=== PATIENT | female | born 1975 | race Caucasian/White ===

== ENCOUNTER 2019-09-25 15:46 | Inpatient (IN) ==
[2019-09-25] MEDS ORDERED: Ziprasidone 20 MG in Water for inj. (sterile) 1 ML IM ONE (16:07)
[2019-09-25 16:39] LABS: Basophils # 0.1 K/mcL (0.0-0.2); Basophils % 0.4 %; Eosinophils # 0.1 K/mcL (0.0-0.6); Eosinophils % 0.4 %; Hematocrit 43.4 % (35.3-44.9); Hemoglobin 14.3 g/dL (11.5-15.4); Immature Granulocytes % 0.4 % (0-4); Lymphocytes # 3.4 K/mcL (0.6-4.6); Lymphocytes % 23.4 %; Mean Corpuscular HGB Conc 32.9 g/dL (31.6-35.5); Mean Corpuscular Hemoglobin 28.9 pg (28.0-33.3); Mean Corpuscular Volume 87.9 fL (83.0-100.0); Mean Platelet Volume 9.9 fL (9.4-12.4); Monocytes # 0.9 K/mcL (0.0-1.3); Monocytes % 6.4 %; Neutrophils # 9.9 K/mcL (1.6-8.9); Platelet Count 411 K/mcL (140-400); Red Blood Count 4.94 M/mcL (3.82-4.97); White Blood Count 14.4 K/mcL (4.3-11.1)
[2019-09-25 16:42] LABS: Acetaminophen < 10 mcg/mL (10-20); BUN/Creatinine Ratio 19 (6-26); Blood Urea Nitrogen 17 mg/dL (6-20); Calcium 9.7 mg/dL (8.6-10.3); Carbon Dioxide 23 mEq/L (23-29); Chloride 104 mEq/L (98-107); Ethanol < 10 mg/dL (Less than 10); Glucose 238 mg/dL (70-105); Osmolality,Calculated 293 (280-300); Potassium 3.6 mEq/L (3.5-5.1); Salicylate < 2.5 mg/dL (15.0-30.0); Sodium 137 mEq/L (136-145); eGFR For African Americans > 60 (> 60); eGFR For Non-African Americans > 60 (> 60)
[2019-09-25 18:12] LABS: Bilirubin,Urine Small (Negative); Blood,Urine Small (Negative); Clarity,Urine Cloudy (Clear); Color,Urine Dark Yellow (Yellow); Glucose,Urine (UA) 250 mg/dL (Normal); Ketones,Urine 80 mg/dL (Negative); Leukocyte Esterase,Urine Small (Negative); Nitrite,Urine Negative (Negative); Protein,Urine 100 mg/dL (Neg-Trace); Specific Gravity,Urine > 1.030 (1.010-1.025); Urobilinogen,Urine Normal (Normal)
[2019-09-25 18:15] LABS: Amphetamine Screen,Urine Negative ng/mL (Cutoff=1000); Barbiturate Screen,Urine Negative ng/mL (Cutoff=200); Benzodiazepines Screen,Urine Negative ng/mL (Cutoff=200); Cannabinoid Screen,Urine Negative ng/mL (Cutoff = 50); Cocaine Screen,Urine Negative ng/mL (Cutoff= 300); Opiate Screen,Urine Negative ng/mL (Cutoff=300); Phencyclidine Screen,Urine Negative ng/mL (Cutoff=25)
[2019-09-25 18:24] LABS: Calcium Oxalate Crystals,Urine Present; Squamous Epithelial Cell,Urine Moderate per lpf (None-Few)
[2019-09-25 18:25] LABS: WBC,Urine 0-3 per hpf (0-3)
[2019-09-25] MEDS ORDERED: haloperidoL 5 MG TABLET PO PRN (19:33)
[2019-09-25] MEDS ORDERED: MOM Conc 10 ML UD.LIQ PO PRN (19:33)
[2019-09-25] MEDS ORDERED: Acetaminophen 325 MG TABLET PO PRN (19:33)
[2019-09-25] MEDS ORDERED: *HR* LORazepam 2 MG/ML VIAL IM PRN (19:33)
[2019-09-25] MEDS ORDERED: Mag Hydrox/Al Hydrox/Simeth 30 ML UDC PO PRN (19:33)
[2019-09-25] MEDS ORDERED: *HR* LORazepam 1 MG TABLET PO PRN (19:33)
[2019-09-26] MEDS: *HR* Metformin 500 MG TABLET PO SCH ×3 (10:01→16:40)
[2019-09-26] MEDS: Haloperidol Lactate 5 MG/ML VIAL IM PRN (11:44)
[2019-09-26] MEDS: ARIPiprazole 5 MG TABLET PO SCH (11:49)
[2019-09-26] MEDS ORDERED: ARIPiprazole 5 MG TABLET PO STA (19:22)
[2019-09-26] MEDS ORDERED: *HR* LORazepam 1 MG TABLET PO ONE (19:23)
[2019-09-26] MEDS ORDERED: *HR* LORazepam 1 MG TABLET PO PRN (19:55)
[2019-09-26] MEDS ORDERED: *HR* LORazepam 2 MG/ML VIAL IM PRN (19:55)
[2019-09-27] MEDS: *HR* Metformin 500 MG TABLET PO SCH ×2 (12:00→16:50)
[2019-09-27] MEDS: ARIPiprazole 10 MG TABLET PO SCH ×2 (12:01→15:14)
[2019-09-27] MEDS: ARIPiprazole 5 MG TABLET PO SCH (12:01)
[2019-09-27] MEDS: Haloperidol Lactate 5 MG/ML VIAL IM PRN (22:19)
[2019-09-28] MEDS: ARIPiprazole 10 MG TABLET PO SCH (09:40)
[2019-09-28] MEDS: *HR* Metformin 500 MG TABLET PO SCH ×2 (09:40→17:36)
[2019-09-28] MEDS ORDERED: *HR* LORazepam 2 MG/ML VIAL IM PRN (14:24)
[2019-09-28] MEDS ORDERED: Haloperidol Lactate 5 MG/ML VIAL IM PRN (14:24)
[2019-09-28] MEDS: Dulaglutide [Trulicity] 0.75 MG SQ SCH (21:54)
[2019-09-29] MEDS: ARIPiprazole 10 MG TABLET PO SCH (08:30)
[2019-09-29] MEDS: *HR* Metformin 500 MG TABLET PO SCH ×3 (08:31→20:51)
[2019-09-29] MEDS: ARIPiprazole 5 MG TABLET PO SCH (08:31)
[2019-09-29] MEDS: QUEtiapine Fumarate 25 MG TABLET PO PRN (20:46)
[2019-09-30] MEDS: *HR* Metformin 500 MG TABLET PO SCH ×2 (07:55→16:54)
[2019-09-30 09:06] LABS: Basophils # 0.1 K/mcL (0.0-0.2); Basophils % 0.4 %; Eosinophils # 0.3 K/mcL (0.0-0.6); Eosinophils % 2.1 %; Hematocrit 43.5 % (35.3-44.9); Hemoglobin 14.3 g/dL (11.5-15.4); Immature Granulocytes % 0.5 % (0-4); Lymphocytes % 29.5 %; Mean Corpuscular HGB Conc 32.9 g/dL (31.6-35.5); Mean Corpuscular Hemoglobin 29.3 pg (28.0-33.3); Mean Corpuscular Volume 89.1 fL (83.0-100.0); Mean Platelet Volume 9.7 fL (9.4-12.4); Monocytes # 0.9 K/mcL (0.0-1.3); Monocytes % 6.7 %; Neutrophils # 8.3 K/mcL (1.6-8.9); Platelet Count 389 K/mcL (140-400); Red Blood Count 4.88 M/mcL (3.82-4.97); Red Cell Distribution Width 13.2 % (11.5-14.5); Segmented Neutrophils % 60.8 %; White Blood Count 13.6 K/mcL (4.3-11.1)
[2019-09-30 09:30] LABS: Alanine Aminotransferase 31 Units/L (7-52); Albumin 4.3 g/dL (3.5-5.7); Albumin/Globulin Ratio 1.7 (1.1-2.2); Alkaline Phosphatase 96 Units/L (34-104); Aspartate Amino Transferase 23 Units/L (13-39); BUN/Creatinine Ratio 12 (6-26); Bilirubin,Total 0.9 mg/dL (0.3-1.0); Blood Urea Nitrogen 10 mg/dL (6-20); Calcium 9.2 mg/dL (8.6-10.3); Carbon Dioxide 25 mEq/L (23-29); Chloride 104 mEq/L (98-107); Chol/HDL Ratio 2.9 (0-4.9); Cholesterol 117 mg/dL (< 200); Globulin 2.5 g/dL (2.4-3.5); Glucose 198 mg/dL (70-105); HDL Cholesterol 40 mg/dL (40-59); LDL Cholesterol,Calculated 49 mg/dL (0-99); Osmolality,Calculated 295 (280-300); Potassium 3.4 mEq/L (3.5-5.1); Sodium 140 mEq/L (136-145); Total Protein 6.8 g/dL (6.4-8.9); Triglycerides 139 mg/dL (< 150); eGFR For African Americans > 60 (> 60); eGFR For Non-African Americans > 60 (> 60)
[2019-09-30 09:42] LABS: Thyroid Stimulating Hormone 1.266 mcIU/mL (0.340-5.600)
[2019-09-30] MEDS: ARIPiprazole 10 MG TABLET PO SCH ×2 (09:42→09:46)
[2019-09-30] MEDS: ARIPiprazole 5 MG TABLET PO SCH (09:46)
[2019-09-30 13:20] LABS: Estimated Average Glucose 180 mg/dl
[2019-09-30] MEDS ORDERED: *HR* LORazepam 1 MG TABLET PO ONE (17:25)
[2019-09-30] MEDS: FISH OIL 1200 MG PO SCH (19:12)
[2019-09-30] MEDS: Dulaglutide [Trulicity] 0.75 MG SQ SCH (19:13)
[2019-09-30] MEDS: QUEtiapine Fumarate 25 MG TABLET PO PRN (22:38)
[2019-10-01] MEDS: hydrOXYzine pamoate 25 MG CAPSULE PO PRN ×2 (01:55→22:06)
[2019-10-01] MEDS: ARIPiprazole 10 MG TABLET PO SCH (07:06)
[2019-10-01] MEDS: *HR* Metformin 500 MG TABLET PO SCH ×2 (07:44→17:38)
[2019-10-01] MEDS: FISH OIL 1200 MG PO SCH (07:44)
[2019-10-01] MEDS ORDERED: *HR* LORazepam 1 MG TABLET PO PRN (11:14)
[2019-10-01] MEDS: QUEtiapine Fumarate 25 MG TABLET PO PRN (22:06)
[2019-10-02] MEDS ORDERED: ARIPiprazole 5 MG TABLET PO SCH (08:00)
[2019-10-02 08:13] VITALS: BP 151/103
[2019-10-02] MEDS: ARIPiprazole 10 MG TABLET PO SCH (08:59)
[2019-10-02] MEDS: FISH OIL 1200 MG PO SCH (09:01)
[2019-10-02] MEDS: *HR* Metformin 500 MG TABLET PO SCH (09:03)
== END 2019-10-02 11:25 | disposition home or self-care (01) | DRG 885 ==
LOC: EMEROOARM 15:46 → 1ANU 19:32
PROVIDERS: ADMIT Psychiatry & Neurology Psychiatry; ATTEND Psychiatry & Neurology Psychiatry

== ENCOUNTER 2020-02-28 17:50 | Inpatient (IN) ==
[2020-02-28] MEDS ORDERED: 0.9 % Sodium Chloride 1,000 ML IVC ONE (18:03)
[2020-02-28 18:50] LABS: Basophils % 0.2 %; Eosinophils # 0.2 K/mcL (0.0-0.6); Eosinophils % 1.6 %; Hematocrit 40.8 % (35.3-44.9); Hemoglobin 13.2 g/dL (11.5-15.4); Immature Granulocytes % 0.4 % (0-4); Lymphocytes # 3.3 K/mcL (0.6-4.6); Lymphocytes % 25.5 %; Mean Corpuscular HGB Conc 32.4 g/dL (31.6-35.5); Mean Corpuscular Volume 89.7 fL (83.0-100.0); Mean Platelet Volume 9.5 fL (9.4-12.4); Monocytes # 0.8 K/mcL (0.0-1.3); Monocytes % 6.2 %; Neutrophils # 8.5 K/mcL (1.6-8.9); Platelet Count 333 K/mcL (140-400); Red Blood Count 4.55 M/mcL (3.82-4.97); Red Cell Distribution Width 13.2 % (11.5-14.5); Segmented Neutrophils % 66.1 %; White Blood Count 12.8 K/mcL (4.3-11.1)
[2020-02-28 18:52] LABS: VBG HCO3 26 mEq/L (21-27); VBG PCO2 44 mmHg (41-51); VBG PH 7.38 pH Units (7.32-7.42); VBG PO2 64 mmHg (25-50)
[2020-02-28 19:08] LABS: Acetaminophen < 10 mcg/mL (10-20); Alanine Aminotransferase 43 Units/L (7-52); Albumin 4.1 g/dL (3.5-5.7); Albumin/Globulin Ratio 2.1 (1.1-2.2); Alkaline Phosphatase 80 Units/L (34-104); Aspartate Amino Transferase 16 Units/L (13-39); BUN/Creatinine Ratio 14 (6-26); Bilirubin,Direct 0.1 mg/dL (0.0-0.2); Bilirubin,Indirect 0.5 mg/dL (0.0-1.0); Bilirubin,Total 0.6 mg/dL (0.3-1.0); Blood Urea Nitrogen 9 mg/dL (6-20); Calcium 9.3 mg/dL (8.6-10.3); Carbon Dioxide 26 mEq/L (23-29); Chloride 104 mEq/L (98-107); Ethanol < 10 mg/dL (Less than 10); Glucose 229 mg/dL (70-105); Osmolality,Calculated 290 (280-300); Potassium 3.8 mEq/L (3.5-5.1); Salicylate < 2.5 mg/dL (15.0-30.0); Sodium 137 mEq/L (136-145); Total Protein 6.1 g/dL (6.4-8.9); eGFR For African Americans > 60 (> 60); eGFR For Non-African Americans > 60 (> 60)
[2020-02-28 20:56] LABS: Bilirubin,Urine Negative (Negative); Blood,Urine Trace (Negative); Clarity,Urine Clear (Clear); Color,Urine Light-Yellow (Yellow); Glucose,Urine (UA) 300 mg/dL (Normal); Ketones,Urine Negative (Negative); Leukocyte Esterase,Urine Negative (Negative); Mucus,Urine Few per lpf (None-Few); Nitrite,Urine Negative (Negative); PH,Urine 5.5 pH Units (5.0-8.0); Protein,Urine Negative (Neg-Trace); RBC,Urine 0-3 per hpf (0-3); Specific Gravity,Urine 1.013 (1.010-1.025); Squamous Epithelial Cell,Urine Few per hpf (None-Few); Urobilinogen,Urine Normal (Normal)
[2020-02-28 21:05] LABS: Amphetamine Screen,Urine Negative ng/mL (Cutoff=1000); Barbiturate Screen,Urine Negative ng/mL (Cutoff=200); Benzodiazepines Screen,Urine Negative ng/mL (Cutoff=200); Cannabinoid Screen,Urine Negative ng/mL (Cutoff = 50); Cocaine Screen,Urine Negative ng/mL (Cutoff= 300); Opiate Screen,Urine Negative ng/mL (Cutoff=300); Phencyclidine Screen,Urine Negative ng/mL (Cutoff=25)
[2020-02-29 00:38] LABS: Adenovirus Not Detected (Not Detect); Coronavirus 229E Not Detected (Not Detect); Coronavirus HKU1 Not Detected (Not Detect); Coronavirus NL63 Not Detected (Not Detect); Coronavirus OC43 Not Detected (Not Detect)
[2020-02-29 00:39] LABS: Bordetella Pertussis Not Detected (Not Detect); Chlamydophila pneumoniae Not Detected (Not Detect); Human Metapneumovirus Not Detected (Not Detect); Human Rhinovirus/Enterovirus Not Detected (Not Detect); Influenza A Subtype 2009 H1 Not Detected (Not Detect); Influenza B Not Detected (Not Detect); Mycoplasma pneumoniae Not Detected (Not Detect); Parainfluenza Virus 1 Not Detected (Not Detect); Parainfluenza Virus 2 Not Detected (Not Detect); Parainfluenza Virus 3 Not Detected (Not Detect); Parainfluenza Virus 4 Not Detected (Not Detect); Respiratory Syncytial Virus Not Detected (Not Detect); SARS-CoV-2 Not Detected (Not Detect)
[2020-02-29] MEDS ORDERED: Acetaminophen 325 MG TABLET PO PRN (01:58)
[2020-02-29] MEDS ORDERED: *HR* LORazepam 1 MG TABLET PO PRN (01:58)
[2020-02-29] MEDS ORDERED: haloperidoL 5 MG TABLET PO PRN (01:58)
[2020-02-29] MEDS ORDERED: Mag Hydrox/Al Hydrox/Simeth 30 ML UDC PO PRN (01:58)
[2020-02-29] MEDS ORDERED: QUEtiapine Fumarate 25 MG TABLET PO PRN (01:58)
[2020-02-29] MEDS ORDERED: MOM Conc 10 ML UD.LIQ PO PRN (01:58)
[2020-02-29] MEDS ORDERED: *HR* LORazepam 2 MG/ML VIAL IM PRN (01:58)
[2020-02-29] MEDS ORDERED: Haloperidol Lactate 5 MG/ML VIAL IM PRN (01:58)
[2020-02-29] MEDS ORDERED: OLANZapine 10 MG TAB.RAPDIS PO PRN (10:12)
[2020-02-29] MEDS: ARIPiprazole 10 MG TABLET PO SCH ×2 (10:22→12:44)
[2020-02-29] MEDS ORDERED: *HR* LORazepam 1 MG TABLET PO ONE (12:41)
[2020-02-29] MEDS: *HR* Metformin 500 MG TABLET PO SCH (17:13)
[2020-03-01] MEDS: ARIPiprazole 10 MG TABLET PO SCH (08:01)
[2020-03-01] MEDS: *HR* Metformin 500 MG TABLET PO SCH (08:02)
[2020-03-01] MEDS ORDERED: LOXAPINE SUCCINATE 50 MG PO PRN (12:45)
[2020-03-01] MEDS ORDERED: *HR* Metformin 500 MG TABLET PO SCH (17:00)
[2020-03-02] MEDS: ARIPiprazole 10 MG TABLET PO SCH ×2 (10:27→11:27)
[2020-03-02] MEDS: METFORMIN 500 MG PO SCH ×2 (10:29→12:27)
[2020-03-02] MEDS: hydrOXYzine pamoate 25 MG CAPSULE PO PRN (21:48)
[2020-03-03] MEDS: ARIPiprazole 10 MG TABLET PO SCH (09:44)
[2020-03-03] MEDS: METFORMIN 500 MG PO SCH (14:27)
[2020-03-04] MEDS: METFORMIN 500 MG PO SCH (10:21)
[2020-03-04] MEDS: ARIPiprazole 10 MG TABLET PO SCH (10:21)
[2020-03-05] MEDS ORDERED: ABILIFY 5 MG PO SCH ×2 (10:15→10:25)
[2020-03-05] MEDS: METFORMIN 500 MG PO SCH (10:35)
[2020-03-05] MEDS: ARIPiprazole 10 MG TABLET PO SCH (13:47)
[2020-03-05] MEDS: Dulaglutide [Trulicity] 0.75 MG SQ SCH (13:47)
[2020-03-05] MEDS: hydrOXYzine pamoate 25 MG CAPSULE PO PRN (18:27)
[2020-03-06] MEDS: ARIPiprazole 5 MG TABLET PO SCH ×2 (09:28→10:50)
[2020-03-06] MEDS: METFORMIN 500 MG PO SCH (09:30)
[2020-03-07] MEDS: ARIPiprazole 5 MG TABLET PO SCH (08:24)
[2020-03-07] MEDS: METFORMIN 500 MG PO SCH (08:26)
[2020-03-08] MEDS: ARIPiprazole 5 MG TABLET PO SCH (08:47)
[2020-03-08] MEDS: METFORMIN 500 MG PO SCH (08:48)
[2020-03-09] MEDS: ARIPiprazole 5 MG TABLET PO SCH (08:15)
[2020-03-09] MEDS: METFORMIN 500 MG PO SCH (08:17)
[2020-03-10] MEDS: ARIPiprazole 5 MG TABLET PO SCH (08:41)
[2020-03-10] MEDS: METFORMIN 500 MG PO SCH (08:43)
[2020-03-11] MEDS: ARIPiprazole 5 MG TABLET PO SCH (08:35)
[2020-03-11] MEDS: METFORMIN 500 MG PO SCH (08:37)
[2020-03-11 12:06] LABS: Basophils % 0.3 %; Eosinophils # 0.1 K/mcL (0.0-0.6); Eosinophils % 0.5 %; Hematocrit 49.2 % (35.3-44.9); Hemoglobin 16.3 g/dL (11.5-15.4); Immature Granulocytes % 0.4 % (0-4); Mean Corpuscular HGB Conc 33.1 g/dL (31.6-35.5); Mean Corpuscular Volume 90.4 fL (83.0-100.0); Mean Platelet Volume 10.2 fL (9.4-12.4); Monocytes # 0.8 K/mcL (0.0-1.3); Neutrophils # 9.7 K/mcL (1.6-8.9); Platelet Count 352 K/mcL (140-400); Red Blood Count 5.44 M/mcL (3.82-4.97); Red Cell Distribution Width 13.5 % (11.5-14.5); Segmented Neutrophils % 76.8 %; White Blood Count 12.6 K/mcL (4.3-11.1)
[2020-03-11 12:31] LABS: Magnesium 1.8 mg/dL (1.6-2.6); Phosphorous 4.1 mg/dL (2.7-4.5)
[2020-03-11 12:40] LABS: Alanine Aminotransferase 17 Units/L (7-52); Albumin 4.8 g/dL (3.5-5.7); Albumin/Globulin Ratio 1.8 (1.1-2.2); Alkaline Phosphatase 84 Units/L (34-104); Aspartate Amino Transferase 12 Units/L (13-39); BUN/Creatinine Ratio 21 (6-26); Bilirubin,Total 0.8 mg/dL (0.3-1.0); Blood Urea Nitrogen 19 mg/dL (6-20); Calcium 10.2 mg/dL (8.6-10.3); Carbon Dioxide 23 mEq/L (23-29); Chloride 107 mEq/L (98-107); Globulin 2.6 g/dL (2.4-3.5); Glucose 218 mg/dL (70-105); Osmolality,Calculated 309 (280-300); Potassium 4.1 mEq/L (3.5-5.1); Sodium 145 mEq/L (136-145); Thyroid Stimulating Hormone 0.542 mcIU/mL (0.340-5.600); Total Protein 7.4 g/dL (6.4-8.9); eGFR For African Americans > 60 (> 60); eGFR For Non-African Americans > 60 (> 60)
[2020-03-12] MEDS: ARIPiprazole 5 MG TABLET PO SCH (09:27)
[2020-03-12] MEDS: METFORMIN 500 MG PO SCH (09:29)
[2020-03-12] MEDS: Metoprolol XL (24 HR) Succ 25 MG TAB.ER.24H PO SCH (11:42)
[2020-03-12] MEDS: Dulaglutide [Trulicity] 0.75 MG SQ SCH (12:10)
[2020-03-12] MEDS ORDERED: Dextrose Gel 15 GM/37.5 ML TUBE PO PRN ×2 (16:10)
[2020-03-12] MEDS ORDERED: D5% in Water 1,000 ML IVC PRN (16:10)
[2020-03-12] MEDS ORDERED: *HR* Dextrose 50 % in Water (Vial) 50 ML VIAL IVP PRN (16:10)
[2020-03-12] MEDS: Insulin LISPRO 300 UNITS/3 ML VIAL SQ SCH (16:57)
[2020-03-13] MEDS: Insulin LISPRO 300 UNITS/3 ML VIAL SQ SCH ×3 (08:28→16:49)
[2020-03-13] MEDS: METFORMIN 500 MG PO SCH (09:02)
[2020-03-13] MEDS: Metoprolol XL (24 HR) Succ 25 MG TAB.ER.24H PO SCH (09:02)
[2020-03-13] MEDS: ARIPiprazole 5 MG TABLET PO SCH (10:10)
[2020-03-13 10:54] LABS: Hematocrit 48.4 % (35.3-44.9); Hemoglobin 15.6 g/dL (11.5-15.4); Mean Corpuscular HGB Conc 32.2 g/dL (31.6-35.5); Mean Corpuscular Hemoglobin 29.4 pg (28.0-33.3); Mean Corpuscular Volume 91.3 fL (83.0-100.0); Mean Platelet Volume 10.6 fL (9.4-12.4); Platelet Count 300 K/mcL (140-400); Red Cell Distribution Width 13.4 % (11.5-14.5); White Blood Count 11.5 K/mcL (4.3-11.1)
[2020-03-13] MEDS ORDERED: ABILIFY 5 MG PO ONE (15:30)
[2020-03-14] MEDS: Insulin LISPRO 300 UNITS/3 ML VIAL SQ SCH ×3 (08:53→16:46)
[2020-03-14] MEDS: ARIPiprazole 5 MG TABLET PO SCH (09:20)
[2020-03-14] MEDS: Metoprolol XL (24 HR) Succ 25 MG TAB.ER.24H PO SCH (09:23)
[2020-03-14] MEDS: METFORMIN 500 MG PO SCH ×2 (09:23→10:46)
[2020-03-14] MEDS: ARIPIPRAZOLE 5 MG PO SCH (10:49)
[2020-03-15] MEDS: Insulin LISPRO 300 UNITS/3 ML VIAL SQ SCH ×3 (08:32→16:40)
[2020-03-15] MEDS: Metoprolol XL (24 HR) Succ 25 MG TAB.ER.24H PO SCH (09:01)
[2020-03-15] MEDS ORDERED: ARIPiprazole 400 MG SUSER.SYR IM SCH (12:30)
[2020-03-15] MEDS: METFORMIN 500 MG PO SCH (14:36)
[2020-03-15] MEDS: ARIPIPRAZOLE 5 MG PO SCH (16:36)
[2020-03-16] MEDS: Insulin LISPRO 300 UNITS/3 ML VIAL SQ SCH ×3 (08:27→17:58)
[2020-03-16] MEDS: ARIPiprazole 5 MG TABLET PO SCH (08:32)
[2020-03-16] MEDS: METFORMIN 500 MG PO SCH (10:39)
[2020-03-16] MEDS: Metoprolol XL (24 HR) Succ 25 MG TAB.ER.24H PO SCH (10:39)
[2020-03-17] MEDS: Insulin LISPRO 300 UNITS/3 ML VIAL SQ SCH ×3 (08:36→16:37)
[2020-03-17] MEDS: ARIPiprazole 5 MG TABLET PO SCH (08:39)
[2020-03-17] MEDS: Metoprolol XL (24 HR) Succ 25 MG TAB.ER.24H PO SCH (08:40)
[2020-03-17] MEDS: METFORMIN 500 MG PO SCH (08:40)
[2020-03-17 11:05] LABS: Basophils % 0.3 %; Eosinophils # 0.1 K/mcL (0.0-0.6); Eosinophils % 0.6 %; Hematocrit 49.6 % (35.3-44.9); Hemoglobin 16.3 g/dL (11.5-15.4); Immature Granulocytes % 0.4 % (0-4); Lymphocytes # 1.9 K/mcL (0.6-4.6); Lymphocytes % 11.9 %; Mean Corpuscular HGB Conc 32.9 g/dL (31.6-35.5); Mean Corpuscular Hemoglobin 29.6 pg (28.0-33.3); Mean Platelet Volume 11.1 fL (9.4-12.4); Monocytes # 0.8 K/mcL (0.0-1.3); Monocytes % 5.1 %; Neutrophils # 12.8 K/mcL (1.6-8.9); Platelet Count 255 K/mcL (140-400); Red Blood Count 5.51 M/mcL (3.82-4.97); Segmented Neutrophils % 81.7 %; White Blood Count 15.6 K/mcL (4.3-11.1)
[2020-03-17 11:57] LABS: Alanine Aminotransferase 14 Units/L (7-52); Albumin 4.4 g/dL (3.5-5.7); Albumin/Globulin Ratio 1.8 (1.1-2.2); Alkaline Phosphatase 77 Units/L (34-104); Aspartate Amino Transferase 13 Units/L (13-39); BUN/Creatinine Ratio 23 (6-26); Bilirubin,Total 1.2 mg/dL (0.3-1.0); Blood Urea Nitrogen 21 mg/dL (6-20); Calcium 9.9 mg/dL (8.6-10.3); Carbon Dioxide 28 mEq/L (23-29); Chloride 105 mEq/L (98-107); Globulin 2.4 g/dL (2.4-3.5); Glucose 187 mg/dL (70-105); Osmolality,Calculated 304 (280-300); Potassium 3.6 mEq/L (3.5-5.1); Sodium 143 mEq/L (136-145); Total Protein 6.8 g/dL (6.4-8.9); eGFR For African Americans > 60 (> 60); eGFR For Non-African Americans > 60 (> 60)
[2020-03-17 12:13] LABS: Thyroid Stimulating Hormone 0.472 mcIU/mL (0.340-5.600)
[2020-03-18] MEDS: Insulin LISPRO 300 UNITS/3 ML VIAL SQ SCH ×3 (09:49→16:31)
[2020-03-18] MEDS: METFORMIN 500 MG PO SCH (09:50)
[2020-03-18] MEDS: Metoprolol XL (24 HR) Succ 25 MG TAB.ER.24H PO SCH (09:50)
[2020-03-18] MEDS: ARIPiprazole 5 MG TABLET PO SCH (12:15)
[2020-03-18] MEDS ORDERED: Melatonin 3 MG TABLET PO PRN (17:10)
[2020-03-19] MEDS: Insulin LISPRO 300 UNITS/3 ML VIAL SQ SCH ×3 (08:36→17:03)
[2020-03-19] MEDS: METFORMIN 500 MG PO SCH (08:40)
[2020-03-19] MEDS: ARIPiprazole 5 MG TABLET PO SCH ×2 (08:40→13:25)
[2020-03-19] MEDS: Metoprolol XL (24 HR) Succ 25 MG TAB.ER.24H PO SCH (08:54)
[2020-03-19 10:27] LABS: Basophils % 0.2 %; Eosinophils % 0.2 %; Hematocrit 52.2 % (35.3-44.9); Hemoglobin 17.3 g/dL (11.5-15.4); Immature Granulocytes % 0.5 % (0-4); Lymphocytes # 1.6 K/mcL (0.6-4.6); Lymphocytes % 12.4 %; Mean Corpuscular HGB Conc 33.1 g/dL (31.6-35.5); Mean Corpuscular Hemoglobin 29.5 pg (28.0-33.3); Mean Corpuscular Volume 89.1 fL (83.0-100.0); Mean Platelet Volume 11.5 fL (9.4-12.4); Monocytes # 0.8 K/mcL (0.0-1.3); Monocytes % 5.9 %; Neutrophils # 10.5 K/mcL (1.6-8.9); Platelet Count 285 K/mcL (140-400); Red Blood Count 5.86 M/mcL (3.82-4.97); Red Cell Distribution Width 13.1 % (11.5-14.5); Segmented Neutrophils % 80.8 %
[2020-03-19 10:54] LABS: Bilirubin,Urine Small (Negative); Blood,Urine Small (Negative); Clarity,Urine Ex.Turbid (Clear); Color,Urine Yellow (Yellow); Glucose,Urine (UA) 70 mg/dL (Normal); Ketones,Urine 60 mg/dL (Negative); Leukocyte Esterase,Urine Large (Negative); Nitrite,Urine Negative (Negative); Protein,Urine 70 mg/dL (Neg-Trace); Specific Gravity,Urine 1.026 (1.010-1.025)
[2020-03-19 10:58] LABS: Bacteria,Urine Many per hpf (None-Few); Squamous Epithelial Cell,Urine Many per hpf (None-Few)
[2020-03-19 10:59] LABS: Transitional Epi Cells,Urine Few per hpf (None-Few); WBC,Urine 30-50 per hpf (0-3)
[2020-03-19] MEDS: Dulaglutide [Trulicity] 0.75 MG SQ SCH (12:02)
[2020-03-19 12:38] LABS: Alanine Aminotransferase 12 Units/L (7-52); Albumin 4.8 g/dL (3.5-5.7); Albumin/Globulin Ratio 1.8 (1.1-2.2); Alkaline Phosphatase 81 Units/L (34-104); Aspartate Amino Transferase 13 Units/L (13-39); BUN/Creatinine Ratio 21 (6-26); Blood Urea Nitrogen 23 mg/dL (6-20); Calcium 10.3 mg/dL (8.6-10.3); Carbon Dioxide 23 mEq/L (23-29); Chloride 107 mEq/L (98-107); Globulin 2.6 g/dL (2.4-3.5); Glucose 266 mg/dL (70-105); Osmolality,Calculated 315 (280-300); Potassium 3.8 mEq/L (3.5-5.1); Sodium 146 mEq/L (136-145); Total Protein 7.4 g/dL (6.4-8.9); eGFR For African Americans > 60 (> 60); eGFR For Non-African Americans 55 (> 60)
[2020-03-19] MEDS ORDERED: Dulaglutide [Trulicity] 0.75 MG SQ SCH (15:30)
[2020-03-19] MEDS ORDERED: CefTRIAXone 1,000 MG VIAL IM ONE (16:48)
[2020-03-20] MEDS: Insulin LISPRO 300 UNITS/3 ML VIAL SQ SCH ×3 (08:22→16:37)
[2020-03-20] MEDS: ARIPiprazole 5 MG TABLET PO SCH (08:27)
[2020-03-20] MEDS: Metoprolol XL (24 HR) Succ 25 MG TAB.ER.24H PO SCH (08:29)
[2020-03-20] MEDS: METFORMIN 500 MG PO SCH (08:29)
[2020-03-20] MEDS ORDERED: CefTRIAXone 1,000 MG VIAL IM ONE (12:00)
[2020-03-21] MEDS: ARIPiprazole 5 MG TABLET PO SCH (08:48)
[2020-03-21] MEDS: Insulin LISPRO 300 UNITS/3 ML VIAL SQ SCH ×3 (08:50→17:08)
[2020-03-21] MEDS: Metoprolol XL (24 HR) Succ 25 MG TAB.ER.24H PO SCH (08:52)
[2020-03-21] MEDS: METFORMIN 500 MG PO SCH (08:52)
[2020-03-21] MEDS ORDERED: CefTRIAXone 1,000 MG VIAL IM ONE (12:00)
[2020-03-22] MEDS: Insulin LISPRO 300 UNITS/3 ML VIAL SQ SCH ×3 (09:45→16:38)
[2020-03-22] MEDS: ARIPiprazole 5 MG TABLET PO SCH (11:23)
[2020-03-22] MEDS: Metoprolol XL (24 HR) Succ 25 MG TAB.ER.24H PO SCH (11:31)
[2020-03-22] MEDS: METFORMIN 500 MG PO SCH (11:31)
[2020-03-23] MEDS: ARIPiprazole 5 MG TABLET PO SCH (11:08)
[2020-03-23] MEDS: Metoprolol XL (24 HR) Succ 25 MG TAB.ER.24H PO SCH (11:13)
[2020-03-23] MEDS: Insulin LISPRO 300 UNITS/3 ML VIAL SQ SCH ×3 (11:13→17:32)
[2020-03-23] MEDS: METFORMIN 500 MG PO SCH (11:13)
[2020-03-23 14:13] LABS: BUN/Creatinine Ratio 18 (6-26); Blood Urea Nitrogen 16 mg/dL (6-20); Calcium 9.5 mg/dL (8.6-10.3); Carbon Dioxide 24 mEq/L (23-29); Chloride 98 mEq/L (98-107); Glucose 167 mg/dL (70-105); Osmolality,Calculated 293 (280-300); Potassium 3.2 mEq/L (3.5-5.1); Sodium 139 mEq/L (136-145); eGFR For African Americans > 60 (> 60); eGFR For Non-African Americans > 60 (> 60)
[2020-03-24] MEDS: ARIPiprazole 5 MG TABLET PO SCH (10:44)
[2020-03-24] MEDS: Insulin LISPRO 300 UNITS/3 ML VIAL SQ SCH ×3 (10:47→16:36)
[2020-03-24] MEDS: METFORMIN 500 MG PO SCH (10:47)
[2020-03-24] MEDS: Metoprolol XL (24 HR) Succ 25 MG TAB.ER.24H PO SCH (10:48)
[2020-03-25] MEDS: Metoprolol XL (24 HR) Succ 25 MG TAB.ER.24H PO SCH (10:53)
[2020-03-25] MEDS: METFORMIN 500 MG PO SCH (10:53)
[2020-03-25] MEDS: Insulin LISPRO 300 UNITS/3 ML VIAL SQ SCH (10:54)
[2020-03-25] MEDS: ARIPiprazole 5 MG TABLET PO SCH (10:57)
[2020-03-25 14:26] VITALS: BP 138/84
[2020-03-25 15:14] LABS: Basophils % 0.3 %; Eosinophils # 0.1 K/mcL (0.0-0.6); Hematocrit 50.8 % (35.3-44.9); Hemoglobin 16.3 g/dL (11.5-15.4); Immature Granulocytes % 0.5 % (0-4); Lymphocytes % 17.2 %; Mean Corpuscular HGB Conc 32.1 g/dL (31.6-35.5); Mean Corpuscular Hemoglobin 28.3 pg (28.0-33.3); Mean Corpuscular Volume 88.3 fL (83.0-100.0); Mean Platelet Volume 11.4 fL (9.4-12.4); Monocytes # 0.8 K/mcL (0.0-1.3); Monocytes % 6.7 %; Neutrophils # 8.5 K/mcL (1.6-8.9); Platelet Count 298 K/mcL (140-400); Red Blood Count 5.75 M/mcL (3.82-4.97); Red Cell Distribution Width 13.5 % (11.5-14.5); Segmented Neutrophils % 74.3 %; White Blood Count 11.5 K/mcL (4.3-11.1)
[2020-03-25 15:39] LABS: BUN/Creatinine Ratio 17 (6-26); Blood Urea Nitrogen 16 mg/dL (6-20); Carbon Dioxide 27 mEq/L (23-29); Chloride 104 mEq/L (98-107); Glucose 157 mg/dL (70-105); Osmolality,Calculated 306 (280-300); Phosphorous 3.3 mg/dL (2.7-4.5); Potassium 3.5 mEq/L (3.5-5.1); Sodium 146 mEq/L (136-145); eGFR For African Americans > 60 (> 60); eGFR For Non-African Americans > 60 (> 60)
== END 2020-03-25 16:50 | disposition other institution (70) | DRG 918 ==
LOC: EMEROOARM 17:50 → SUATTDRO 02-29 01:50 → 1ANU 02-29 01:50
PROVIDERS: ADMIT Psychiatry & Neurology Psychiatry; ATTEND Psychiatry & Neurology Psychiatry

== ENCOUNTER 2020-03-25 14:17 | Inpatient (IN) ==
[2020-03-25] MEDS ORDERED: Naloxone 0.4 MG/ML INJ IVP PRN (15:08)
[2020-03-25] MEDS ORDERED: Acetaminophen 325 MG TABLET PO PRN (15:08)
[2020-03-25] MEDS ORDERED: Ondansetron 4 MG/2 ML VIAL IVP PRN (15:08)
[2020-03-25] MEDS ORDERED: haloperidoL 5 MG TABLET PO PRN (17:35)
[2020-03-25] MEDS ORDERED: QUEtiapine Fumarate 25 MG TABLET PO PRN (17:35)
[2020-03-25] MEDS ORDERED: hydrOXYzine pamoate 25 MG CAPSULE PO PRN (17:35)
[2020-03-25] MEDS ORDERED: *HR* LORazepam 2 MG/ML VIAL IM PRN (17:35)
[2020-03-25] MEDS ORDERED: Haloperidol Lactate 5 MG/ML VIAL IM PRN (17:35)
[2020-03-25] MEDS ORDERED: *HR* LORazepam 1 MG TABLET PO PRN (17:35)
[2020-03-25] MEDS ORDERED: D5% in Water 1,000 ML IVC PRN (17:58)
[2020-03-25] MEDS ORDERED: *HR* Dextrose 50 % in Water (Vial) 50 ML VIAL IVP PRN (17:58)
[2020-03-25] MEDS ORDERED: Dextrose Gel 15 GM/37.5 ML TUBE PO PRN ×2 (17:58)
[2020-03-25] MEDS: Ringers Solution, Lactated 1,000 ML IVC SCH (21:51)
[2020-03-26 06:07] LABS: Basophils % 0.3 %; Eosinophils # 0.3 K/mcL (0.0-0.6); Eosinophils % 3.2 %; Immature Granulocytes % 0.5 % (0-4); Lymphocytes # 3.8 K/mcL (0.6-4.6); Lymphocytes % 37.6 %; Mean Corpuscular HGB Conc 33.3 g/dL (31.6-35.5); Mean Corpuscular Hemoglobin 28.8 pg (28.0-33.3); Mean Corpuscular Volume 86.4 fL (83.0-100.0); Mean Platelet Volume 11.6 fL (9.4-12.4); Monocytes # 0.8 K/mcL (0.0-1.3); Monocytes % 7.4 %; Neutrophils # 5.2 K/mcL (1.6-8.9); Platelet Count 232 K/mcL (140-400); Red Blood Count 4.86 M/mcL (3.82-4.97); Red Cell Distribution Width 13.2 % (11.5-14.5); White Blood Count 10.2 K/mcL (4.3-11.1)
[2020-03-26] MEDS: *HR* Enoxaparin 40 MG/0.4 ML SYRINGE SQ SCH (06:09)
[2020-03-26 06:51] LABS: Alanine Aminotransferase 14 Units/L (7-52); Albumin 3.7 g/dL (3.5-5.7); Albumin/Globulin Ratio 1.9 (1.1-2.2); Alkaline Phosphatase 51 Units/L (34-104); Aspartate Amino Transferase 13 Units/L (13-39); BUN/Creatinine Ratio 16 (6-26); Bilirubin,Total 0.9 mg/dL (0.3-1.0); Blood Urea Nitrogen 14 mg/dL (6-20); Calcium 9.3 mg/dL (8.6-10.3); Carbon Dioxide 28 mEq/L (23-29); Chloride 97 mEq/L (98-107); Chol/HDL Ratio 5.3 (0-4.9); Cholesterol 132 mg/dL (< 200); Globulin 1.9 g/dL (2.4-3.5); Glucose 94 mg/dL (70-105); HDL Cholesterol 25 mg/dL (40-59); LDL Cholesterol,Calculated 89 mg/dL (< 100); Magnesium 1.7 mg/dL (1.6-2.6); Osmolality,Calculated 282 (280-300); Phosphorous 3.7 mg/dL (2.7-4.5); Potassium 2.8 mEq/L (3.5-5.1); Sodium 136 mEq/L (136-145); Total Protein 5.6 g/dL (6.4-8.9); Triglycerides 90 mg/dL (< 150); eGFR For African Americans > 60 (> 60); eGFR For Non-African Americans > 60 (> 60)
[2020-03-26] MEDS: ARIPiprazole 10 MG TABLET PO SCH (08:10)
[2020-03-26] MEDS: Metoprolol XL (24 HR) Succ 25 MG TAB.ER.24H PO SCH (08:10)
[2020-03-26 09:52] LABS: Estimated Average Glucose 200 mg/dl; Hemoglobin A1C 8.6 %
[2020-03-26] MEDS: Ringers Solution, Lactated 1,000 ML IVC SCH (12:33)
[2020-03-27] MEDS: *HR* Enoxaparin 40 MG/0.4 ML SYRINGE SQ SCH (03:09)
[2020-03-27] MEDS: ARIPiprazole 10 MG TABLET PO SCH (08:18)
[2020-03-27] MEDS ORDERED: ARIPiprazole 5 MG TABLET PO SCH (09:00)
[2020-03-27] MEDS: Metoprolol XL (24 HR) Succ 25 MG TAB.ER.24H PO SCH (09:55)
[2020-03-27 09:58] LABS: Hematocrit 39.7 % (35.3-44.9); Hemoglobin 13.2 g/dL (11.5-15.4); Mean Corpuscular HGB Conc 33.2 g/dL (31.6-35.5); Mean Corpuscular Hemoglobin 29.1 pg (28.0-33.3); Mean Corpuscular Volume 87.4 fL (83.0-100.0); Mean Platelet Volume 11.3 fL (9.4-12.4); Platelet Count 220 K/mcL (140-400); Red Blood Count 4.54 M/mcL (3.82-4.97); Red Cell Distribution Width 13.1 % (11.5-14.5); White Blood Count 9.2 K/mcL (4.3-11.1)
[2020-03-27 10:05] LABS: Potassium 3.7 mEq/L (3.5-5.1)
[2020-03-27 10:12] LABS: BUN/Creatinine Ratio 11 (6-26); Blood Urea Nitrogen 8 mg/dL (6-20); Calcium 8.5 mg/dL (8.6-10.3); Carbon Dioxide 23 mEq/L (23-29); Chloride 101 mEq/L (98-107); Glucose 109 mg/dL (70-105); Osmolality,Calculated 279 (280-300); Sodium 135 mEq/L (136-145); eGFR For African Americans > 60 (> 60); eGFR For Non-African Americans > 60 (> 60)
[2020-03-27] MEDS: ARIPiprazole 5 MG TABLET PO SCH (10:16)
[2020-03-27] MEDS: RisperiDONE-M 1 MG TAB.RAPDIS PO SCH ×2 (10:17→23:03)
[2020-03-27] MEDS ORDERED: Ringers Solution, Lactated 1,000 ML IVC SCH (13:45)
[2020-03-28 02:53] LABS: Hematocrit 36.3 % (35.3-44.9); Hemoglobin 12.3 g/dL (11.5-15.4); Mean Corpuscular HGB Conc 33.9 g/dL (31.6-35.5); Mean Corpuscular Volume 88.5 fL (83.0-100.0); Platelet Count 172 K/mcL (140-400); Red Cell Distribution Width 13.1 % (11.5-14.5)
[2020-03-28 03:15] LABS: BUN/Creatinine Ratio 7 (6-26); Blood Urea Nitrogen 5 mg/dL (6-20); Calcium 8.3 mg/dL (8.6-10.3); Carbon Dioxide 24 mEq/L (23-29); Chloride 104 mEq/L (98-107); Glucose 74 mg/dL (70-105); Osmolality,Calculated 284 (280-300); Potassium 3.2 mEq/L (3.5-5.1); Sodium 139 mEq/L (136-145); eGFR For African Americans > 60 (> 60); eGFR For Non-African Americans > 60 (> 60)
[2020-03-28] MEDS: *HR* Enoxaparin 40 MG/0.4 ML SYRINGE SQ SCH (05:57)
[2020-03-28] MEDS: Metoprolol XL (24 HR) Succ 25 MG TAB.ER.24H PO SCH (09:28)
[2020-03-28] MEDS: RisperiDONE-M 1 MG TAB.RAPDIS PO SCH ×2 (09:28→20:37)
[2020-03-28] MEDS: ARIPiprazole 5 MG TABLET PO SCH (09:37)
[2020-03-28] MEDS ORDERED: Ringers Solution, Lactated 500 ML IVC SCH (18:45)
[2020-03-29 01:29] LABS: Mean Corpuscular HGB Conc 33.3 g/dL (31.6-35.5); Mean Corpuscular Hemoglobin 29.5 pg (28.0-33.3); Mean Corpuscular Volume 88.6 fL (83.0-100.0); Mean Platelet Volume 11.2 fL (9.4-12.4); Platelet Count 179 K/mcL (140-400); Red Cell Distribution Width 13.2 % (11.5-14.5); White Blood Count 7.5 K/mcL (4.3-11.1)
[2020-03-29 01:40] LABS: BUN/Creatinine Ratio 7 (6-26); Blood Urea Nitrogen 4 mg/dL (6-20); Calcium 8.6 mg/dL (8.6-10.3); Carbon Dioxide 22 mEq/L (23-29); Chloride 104 mEq/L (98-107); Glucose 68 mg/dL (70-105); Osmolality,Calculated 281 (280-300); Potassium 3.3 mEq/L (3.5-5.1); Sodium 138 mEq/L (136-145); eGFR For African Americans > 60 (> 60); eGFR For Non-African Americans > 60 (> 60)
[2020-03-29] MEDS: *HR* Enoxaparin 40 MG/0.4 ML SYRINGE SQ SCH (07:17)
[2020-03-29] MEDS: Metoprolol XL (24 HR) Succ 25 MG TAB.ER.24H PO SCH (07:17)
[2020-03-29] MEDS ORDERED: Potassium Chloride 40 MEQ, Lidocaine 1% 2 ML in 0.9 % Sodium Chloride 500 ML IVPB ONE (07:31)
[2020-03-29] MEDS ORDERED: D5% in Water 500 ML IVC SCH (07:45)
[2020-03-29] MEDS: RisperiDONE-M 1 MG TAB.RAPDIS PO SCH ×2 (09:25→20:16)
[2020-03-29] MEDS: ARIPiprazole 5 MG TABLET PO SCH (09:52)
[2020-03-29 11:51] LABS: Magnesium 1.7 mg/dL (1.6-2.6); Phosphorous 2.8 mg/dL (2.7-4.5)
[2020-03-29] MEDS ORDERED: Lidocaine -MPF 1% 5 ML AMPUL INFILT ONE (12:01)
[2020-03-29] MEDS ORDERED: D10% in Water 500 ML IVC PRN (12:52)
[2020-03-29] MEDS: Insulin LISPRO 300 UNITS/3 ML VIAL SUBQ SCH ×2 (16:27→20:16)
[2020-03-29] MEDS ORDERED: Clinimix E 5%-15% SOLUTION 2,000 ML with MVI, adult with vitamin K 10 ML IVC SCH (17:00)
[2020-03-30] MEDS: Insulin LISPRO 300 UNITS/3 ML VIAL SUBQ SCH ×7 (00:14→23:52)
[2020-03-30 04:09] LABS: Hematocrit 40.9 % (35.3-44.9); Hemoglobin 13.4 g/dL (11.5-15.4); Mean Corpuscular HGB Conc 32.8 g/dL (31.6-35.5); Mean Corpuscular Hemoglobin 28.9 pg (28.0-33.3); Mean Corpuscular Volume 88.1 fL (83.0-100.0); Mean Platelet Volume 11.1 fL (9.4-12.4); Platelet Count 186 K/mcL (140-400); Red Blood Count 4.64 M/mcL (3.82-4.97); Red Cell Distribution Width 13.3 % (11.5-14.5); White Blood Count 8.7 K/mcL (4.3-11.1)
[2020-03-30 04:29] LABS: BUN/Creatinine Ratio 8 (6-26); Blood Urea Nitrogen 4 mg/dL (6-20); Calcium 8.6 mg/dL (8.6-10.3); Carbon Dioxide 25 mEq/L (23-29); Chloride 105 mEq/L (98-107); Glucose 130 mg/dL (70-105); Magnesium 1.7 mg/dL (1.6-2.6); Osmolality,Calculated 287 (280-300); Potassium 3.4 mEq/L (3.5-5.1); Sodium 139 mEq/L (136-145); eGFR For African Americans > 60 (> 60); eGFR For Non-African Americans > 60 (> 60)
[2020-03-30] MEDS: *HR* Enoxaparin 40 MG/0.4 ML SYRINGE SQ SCH (07:14)
[2020-03-30] MEDS ORDERED: Potassium Chloride 20 MEQ, Lidocaine 1% 2 ML in 0.9 % Sodium Chloride 250 ML IVPB ONE (07:38)
[2020-03-30] MEDS: *HR* LORazepam 2 MG/ML VIAL IVP SCH ×2 (08:10→21:49)
[2020-03-30] MEDS: Metoprolol XL (24 HR) Succ 25 MG TAB.ER.24H PO SCH (08:10)
[2020-03-30] MEDS ORDERED: Clinimix E 5%-15% SOLUTION 2,000 ML IVC SCH (17:00)
[2020-03-30] MEDS: Haloperidol Lactate 5 MG/ML VIAL IVP SCH ×2 (17:22→21:48)
[2020-03-31] MEDS: Insulin LISPRO 300 UNITS/3 ML VIAL SUBQ SCH ×5 (03:43→21:14)
[2020-03-31] MEDS: *HR* Enoxaparin 40 MG/0.4 ML SYRINGE SQ SCH (05:32)
[2020-03-31 08:53] LABS: Hematocrit 41.4 % (35.3-44.9); Hemoglobin 13.9 g/dL (11.5-15.4); Mean Corpuscular HGB Conc 33.6 g/dL (31.6-35.5); Mean Corpuscular Hemoglobin 29.1 pg (28.0-33.3); Mean Corpuscular Volume 86.6 fL (83.0-100.0); Mean Platelet Volume 10.5 fL (9.4-12.4); Platelet Count 166 K/mcL (140-400); Red Blood Count 4.78 M/mcL (3.82-4.97); Red Cell Distribution Width 13.1 % (11.5-14.5); White Blood Count 8.8 K/mcL (4.3-11.1)
[2020-03-31 09:14] LABS: BUN/Creatinine Ratio 14 (6-26); Blood Urea Nitrogen 8 mg/dL (6-20); Calcium 8.7 mg/dL (8.6-10.3); Carbon Dioxide 26 mEq/L (23-29); Chloride 103 mEq/L (98-107); Glucose 226 mg/dL (70-105); Magnesium 1.6 mg/dL (1.6-2.6); Osmolality,Calculated 283 (280-300); Phosphorous 3.8 mg/dL (2.7-4.5); Potassium 3.6 mEq/L (3.5-5.1); Sodium 134 mEq/L (136-145); eGFR For African Americans > 60 (> 60); eGFR For Non-African Americans > 60 (> 60)
[2020-03-31] MEDS: Metoprolol XL (24 HR) Succ 25 MG TAB.ER.24H PO SCH (09:41)
[2020-03-31] MEDS: *HR* LORazepam 2 MG/ML VIAL IVP SCH ×2 (09:43→17:50)
[2020-03-31] MEDS: Haloperidol Lactate 5 MG/ML VIAL IVP SCH ×2 (09:45→21:13)
[2020-03-31] MEDS ORDERED: Clinimix E 5%-15% SOLUTION 2,000 ML IVC SCH (17:00)
[2020-03-31] MEDS ORDERED: *HR* Metoprolol 5 MG/5 ML VIAL IVP ONE (19:01)
[2020-04-01] MEDS: Insulin LISPRO 300 UNITS/3 ML VIAL SUBQ SCH ×7 (00:07→23:44)
[2020-04-01] MEDS: *HR* Enoxaparin 40 MG/0.4 ML SYRINGE SQ SCH (05:38)
[2020-04-01] MEDS: *HR* LORazepam 2 MG/ML VIAL IVP SCH ×2 (05:40→16:53)
[2020-04-01 06:00] LABS: Hematocrit 40.6 % (35.3-44.9); Hemoglobin 13.4 g/dL (11.5-15.4); Mean Corpuscular Hemoglobin 28.9 pg (28.0-33.3); Mean Corpuscular Volume 87.7 fL (83.0-100.0); Mean Platelet Volume 11.2 fL (9.4-12.4); Platelet Count 181 K/mcL (140-400); Red Blood Count 4.63 M/mcL (3.82-4.97); Red Cell Distribution Width 13.3 % (11.5-14.5); White Blood Count 8.2 K/mcL (4.3-11.1)
[2020-04-01 06:23] LABS: BUN/Creatinine Ratio 16 (6-26); Blood Urea Nitrogen 9 mg/dL (6-20); Calcium 8.5 mg/dL (8.6-10.3); Carbon Dioxide 27 mEq/L (23-29); Chloride 105 mEq/L (98-107); Glucose 201 mg/dL (70-105); Magnesium 1.9 mg/dL (1.6-2.6); Osmolality,Calculated 290 (280-300); Phosphorous 4.5 mg/dL (2.7-4.5); Potassium 3.3 mEq/L (3.5-5.1); Sodium 138 mEq/L (136-145); eGFR For African Americans > 60 (> 60); eGFR For Non-African Americans > 60 (> 60)
[2020-04-01] MEDS ORDERED: Potassium Chloride 20 MEQ, Lidocaine 1% 2 ML in 0.9 % Sodium Chloride 250 ML IVPB ONE (07:38)
[2020-04-01] MEDS: Haloperidol Lactate 5 MG/ML VIAL IVP SCH ×2 (08:12→19:43)
[2020-04-01] MEDS: Metoprolol XL (24 HR) Succ 25 MG TAB.ER.24H PO SCH ×2 (08:59→10:43)
[2020-04-01] MEDS ORDERED: Clinimix E 5%-15% SOLUTION 2,000 ML with MVI, adult with vitamin K 10 ML IVC SCH (17:00)
[2020-04-02] MEDS: Insulin LISPRO 300 UNITS/3 ML VIAL SUBQ SCH ×6 (04:02→20:16)
[2020-04-02] MEDS: *HR* LORazepam 2 MG/ML VIAL IVP SCH ×2 (05:30→16:40)
[2020-04-02] MEDS: *HR* Enoxaparin 40 MG/0.4 ML SYRINGE SQ SCH (05:32)
[2020-04-02 05:43] LABS: Hematocrit 39.5 % (35.3-44.9); Mean Corpuscular HGB Conc 32.9 g/dL (31.6-35.5); Mean Corpuscular Hemoglobin 29.4 pg (28.0-33.3); Mean Corpuscular Volume 89.4 fL (83.0-100.0); Platelet Count 157 K/mcL (140-400); Red Blood Count 4.42 M/mcL (3.82-4.97); Red Cell Distribution Width 13.4 % (11.5-14.5); White Blood Count 7.2 K/mcL (4.3-11.1)
[2020-04-02 06:05] LABS: BUN/Creatinine Ratio 20 (6-26); Blood Urea Nitrogen 10 mg/dL (6-20); Calcium 8.3 mg/dL (8.6-10.3); Carbon Dioxide 26 mEq/L (23-29); Chloride 106 mEq/L (98-107); Glucose 147 mg/dL (70-105); Magnesium 1.8 mg/dL (1.6-2.6); Osmolality,Calculated 288 (280-300); Phosphorous 3.9 mg/dL (2.7-4.5); Potassium 3.7 mEq/L (3.5-5.1); Sodium 138 mEq/L (136-145); eGFR For African Americans > 60 (> 60); eGFR For Non-African Americans > 60 (> 60)
[2020-04-02] MEDS: Haloperidol Lactate 5 MG/ML VIAL IVP SCH ×2 (07:31→20:12)
[2020-04-02] MEDS: Metoprolol XL (24 HR) Succ 25 MG TAB.ER.24H PO SCH (07:32)
[2020-04-02] MEDS ORDERED: Clinimix E 5%-15% SOLUTION 2,000 ML IVC SCH (17:00)
[2020-04-03] MEDS: Insulin LISPRO 300 UNITS/3 ML VIAL SUBQ SCH ×6 (00:13→20:26)
[2020-04-03] MEDS: *HR* LORazepam 2 MG/ML VIAL IVP SCH ×2 (06:05→17:15)
[2020-04-03] MEDS: *HR* Enoxaparin 40 MG/0.4 ML SYRINGE SQ SCH (06:05)
[2020-04-03] MEDS: Haloperidol Lactate 5 MG/ML VIAL IVP SCH ×3 (07:37→20:27)
[2020-04-03] MEDS: Metoprolol XL (24 HR) Succ 25 MG TAB.ER.24H PO SCH (08:29)
[2020-04-03 12:11] LABS: BUN/Creatinine Ratio 24 (6-26); Blood Urea Nitrogen 12 mg/dL (6-20); Calcium 8.2 mg/dL (8.6-10.3); Carbon Dioxide 26 mEq/L (23-29); Chloride 106 mEq/L (98-107); Glucose 191 mg/dL (70-105); Magnesium 1.9 mg/dL (1.6-2.6); Osmolality,Calculated 287 (280-300); Phosphorous 3.7 mg/dL (2.7-4.5); Sodium 136 mEq/L (136-145); eGFR For African Americans > 60 (> 60); eGFR For Non-African Americans > 60 (> 60)
[2020-04-03] MEDS ORDERED: Clinimix E 5%-15% SOLUTION 2,000 ML with MVI, adult with vitamin K 10 ML IVC SCH (17:00)
[2020-04-04] MEDS: Insulin LISPRO 300 UNITS/3 ML VIAL SUBQ SCH ×6 (00:13→21:07)
[2020-04-04 05:04] LABS: BUN/Creatinine Ratio 27 (6-26); Blood Urea Nitrogen 14 mg/dL (6-20); Calcium 8.2 mg/dL (8.6-10.3); Carbon Dioxide 27 mEq/L (23-29); Chloride 107 mEq/L (98-107); Glucose 215 mg/dL (70-105); Magnesium 2.1 mg/dL (1.6-2.6); Osmolality,Calculated 291 (280-300); Phosphorous 4.2 mg/dL (2.7-4.5); Potassium 4.3 mEq/L (3.5-5.1); Sodium 137 mEq/L (136-145); eGFR For African Americans > 60 (> 60); eGFR For Non-African Americans > 60 (> 60)
[2020-04-04] MEDS: *HR* LORazepam 2 MG/ML VIAL IVP SCH ×2 (05:38→16:57)
[2020-04-04] MEDS: *HR* Enoxaparin 40 MG/0.4 ML SYRINGE SQ SCH (05:39)
[2020-04-04] MEDS: Haloperidol Lactate 5 MG/ML VIAL IVP SCH ×2 (08:12→21:30)
[2020-04-04] MEDS: Metoprolol XL (24 HR) Succ 25 MG TAB.ER.24H PO SCH (08:12)
[2020-04-04] MEDS ORDERED: Clinimix E 5%-15% SOLUTION 2,000 ML IVC SCH (17:00)
[2020-04-04] MEDS ORDERED: QUEtiapine Fumarate 25 MG TABLET PO ONE (21:30)
[2020-04-05] MEDS: Insulin LISPRO 300 UNITS/3 ML VIAL SUBQ SCH ×6 (00:18→20:35)
[2020-04-05] MEDS: *HR* LORazepam 2 MG/ML VIAL IVP SCH ×3 (06:01→17:40)
[2020-04-05] MEDS: *HR* Enoxaparin 40 MG/0.4 ML SYRINGE SQ SCH (06:01)
[2020-04-05 07:20] LABS: BUN/Creatinine Ratio 20 (6-26); Blood Urea Nitrogen 11 mg/dL (6-20); Calcium 8.2 mg/dL (8.6-10.3); Carbon Dioxide 26 mEq/L (23-29); Chloride 108 mEq/L (98-107); Glucose 158 mg/dL (70-105); Magnesium 1.9 mg/dL (1.6-2.6); Osmolality,Calculated 289 (280-300); Phosphorous 4.2 mg/dL (2.7-4.5); Sodium 138 mEq/L (136-145); eGFR For African Americans > 60 (> 60); eGFR For Non-African Americans > 60 (> 60)
[2020-04-05] MEDS: Haloperidol Lactate 5 MG/ML VIAL IVP SCH ×3 (08:29→20:42)
[2020-04-05] MEDS: Metoprolol XL (24 HR) Succ 25 MG TAB.ER.24H PO SCH (08:29)
[2020-04-05] MEDS ORDERED: Clinimix E 5%-15% SOLUTION 2,000 ML with MVI, adult with vitamin K 10 ML, Trace Eleme... IVC SCH (17:00)
[2020-04-05] MEDS: QUEtiapine Fumarate 25 MG TABLET PO PRN (20:42)
[2020-04-06] MEDS: Insulin LISPRO 300 UNITS/3 ML VIAL SUBQ SCH ×6 (00:36→20:29)
[2020-04-06] MEDS: *HR* LORazepam 2 MG/ML VIAL IVP SCH ×2 (05:51→18:09)
[2020-04-06] MEDS: *HR* Enoxaparin 40 MG/0.4 ML SYRINGE SQ SCH (06:01)
[2020-04-06 06:33] LABS: BUN/Creatinine Ratio 33 (6-26); Blood Urea Nitrogen 18 mg/dL (6-20); Calcium 8.3 mg/dL (8.6-10.3); Carbon Dioxide 24 mEq/L (23-29); Chloride 108 mEq/L (98-107); Glucose 144 mg/dL (70-105); Magnesium 1.8 mg/dL (1.6-2.6); Osmolality,Calculated 288 (280-300); Phosphorous 5.1 mg/dL (2.7-4.5); Potassium 3.9 mEq/L (3.5-5.1); Sodium 137 mEq/L (136-145); eGFR For African Americans > 60 (> 60); eGFR For Non-African Americans > 60 (> 60)
[2020-04-06] MEDS: Metoprolol XL (24 HR) Succ 25 MG TAB.ER.24H PO SCH (07:55)
[2020-04-06] MEDS: Haloperidol Lactate 5 MG/ML VIAL IVP SCH ×2 (08:12→20:29)
[2020-04-06 13:43] LABS: Adenovirus Not Detected (Not Detect); Coronavirus 229E Not Detected (Not Detect); Coronavirus HKU1 Not Detected (Not Detect); Coronavirus NL63 Not Detected (Not Detect); Coronavirus OC43 Not Detected (Not Detect); Human Metapneumovirus Not Detected (Not Detect); Human Rhinovirus/Enterovirus Not Detected (Not Detect); Influenza A Subtype 2009 H1 Not Detected (Not Detect); SARS-CoV-2 Not Detected (Not Detect)
[2020-04-06 13:44] LABS: Bordetella Pertussis Not Detected (Not Detect); Chlamydophila pneumoniae Not Detected (Not Detect); Mycoplasma pneumoniae Not Detected (Not Detect); Parainfluenza Virus 1 Not Detected (Not Detect); Parainfluenza Virus 2 Not Detected (Not Detect); Parainfluenza Virus 3 Not Detected (Not Detect); Parainfluenza Virus 4 Not Detected (Not Detect); Respiratory Syncytial Virus Not Detected (Not Detect)
[2020-04-06] MEDS ORDERED: Clinimix E 5%-15% SOLUTION 2,000 ML with Trace Elements-5 Concentrate 1 ML IV SCH (17:00)
[2020-04-06] MEDS: QUEtiapine Fumarate 25 MG TABLET PO PRN (20:28)
[2020-04-07] MEDS: Insulin LISPRO 300 UNITS/3 ML VIAL SUBQ SCH ×7 (00:09→23:56)
[2020-04-07] MEDS: *HR* LORazepam 2 MG/ML VIAL IVP SCH ×2 (04:44→16:49)
[2020-04-07] MEDS: *HR* Enoxaparin 40 MG/0.4 ML SYRINGE SQ SCH (04:44)
[2020-04-07 05:57] LABS: BUN/Creatinine Ratio 33 (6-26); Blood Urea Nitrogen 19 mg/dL (6-20); Calcium 8.2 mg/dL (8.6-10.3); Carbon Dioxide 25 mEq/L (23-29); Chloride 107 mEq/L (98-107); Glucose 155 mg/dL (70-105); Magnesium 1.8 mg/dL (1.6-2.6); Osmolality,Calculated 291 (280-300); Phosphorous 4.7 mg/dL (2.7-4.5); Sodium 138 mEq/L (136-145); eGFR For African Americans > 60 (> 60); eGFR For Non-African Americans > 60 (> 60)
[2020-04-07] MEDS: Metoprolol XL (24 HR) Succ 25 MG TAB.ER.24H PO SCH (08:44)
[2020-04-07] MEDS: Haloperidol Lactate 5 MG/ML VIAL IVP SCH ×2 (08:46→20:28)
[2020-04-07] MEDS ORDERED: Clinimix E 5%-15% SOLUTION 2,000 ML with Trace Elements-5 Concentrate 1 ML IV SCH (17:00)
[2020-04-08] MEDS: *HR* LORazepam 2 MG/ML VIAL IVP SCH ×2 (05:12→18:53)
[2020-04-08] MEDS: Insulin LISPRO 300 UNITS/3 ML VIAL SUBQ SCH ×5 (05:20→20:28)
[2020-04-08 05:57] LABS: BUN/Creatinine Ratio 30 (6-26); Blood Urea Nitrogen 17 mg/dL (6-20); Calcium 8.2 mg/dL (8.6-10.3); Carbon Dioxide 25 mEq/L (23-29); Chloride 108 mEq/L (98-107); Glucose 194 mg/dL (70-105); Magnesium 1.7 mg/dL (1.6-2.6); Osmolality,Calculated 293 (280-300); Phosphorous 3.4 mg/dL (2.7-4.5); Sodium 138 mEq/L (136-145); eGFR For African Americans > 60 (> 60); eGFR For Non-African Americans > 60 (> 60)
[2020-04-08] MEDS: Haloperidol Lactate 5 MG/ML VIAL IVP SCH ×2 (09:15→20:28)
[2020-04-08] MEDS: Metoprolol XL (24 HR) Succ 25 MG TAB.ER.24H PO SCH (09:18)
[2020-04-08] MEDS: QUEtiapine Fumarate 25 MG TABLET PO PRN (20:28)
[2020-04-09] MEDS: Insulin LISPRO 300 UNITS/3 ML VIAL SUBQ SCH ×4 (02:09→18:12)
[2020-04-09] MEDS: *HR* LORazepam 2 MG/ML VIAL IVP SCH (05:19)
[2020-04-09] MEDS: Haloperidol Lactate 5 MG/ML VIAL IVP SCH (09:16)
[2020-04-09] MEDS: Metoprolol XL (24 HR) Succ 25 MG TAB.ER.24H PO SCH (09:16)
[2020-04-09] MEDS: *HR* LORazepam 0.5 MG TABLET PO SCH (18:04)
[2020-04-09] MEDS: haloperidoL 1 MG TABLET PO SCH (20:41)
[2020-04-09] MEDS: QUEtiapine Fumarate 25 MG TABLET PO PRN (20:42)
[2020-04-09] MEDS ORDERED: Insulin LISPRO 300 UNITS/3 ML VIAL SUBQ SCH (21:00)
[2020-04-10] MEDS: *HR* LORazepam 0.5 MG TABLET PO SCH (06:00)
[2020-04-10 06:38] LABS: Mean Corpuscular HGB Conc 32.8 g/dL (31.6-35.5)
[2020-04-10 06:41] LABS: Hemoglobin 11.8 g/dL (11.5-15.4); Immature Platelets 12.1 % (1.1-6.1); Mean Corpuscular Hemoglobin 29.5 pg (28.0-33.3); Mean Platelet Volume 12.3 fL (9.4-12.4); Red Cell Distribution Width 13.5 % (11.5-14.5); White Blood Count 7.8 K/mcL (4.3-11.1)
[2020-04-10 06:56] LABS: BUN/Creatinine Ratio 32 (6-26); Blood Urea Nitrogen 19 mg/dL (6-20); Carbon Dioxide 24 mEq/L (23-29); Chloride 109 mEq/L (98-107); Glucose 153 mg/dL (70-105); Osmolality,Calculated 293 (280-300); Potassium 4.1 mEq/L (3.5-5.1); Sodium 139 mEq/L (136-145); eGFR For African Americans > 60 (> 60); eGFR For Non-African Americans > 60 (> 60)
[2020-04-10 08:47] VITALS: BP 110/67
[2020-04-10] MEDS: haloperidoL 1 MG TABLET PO SCH (09:32)
[2020-04-10] MEDS: Metoprolol XL (24 HR) Succ 25 MG TAB.ER.24H PO SCH (09:33)
[2020-04-10] MEDS: Insulin LISPRO 300 UNITS/3 ML VIAL SUBQ SCH (09:35)
[2020-04-10 13:47] LABS: Influenza B DETECTED (Not Detect)
[2020-04-10] MEDS ORDERED: ARIPiprazole 400 MG SUSER.SYR IM STA (13:48)
== END 2020-04-10 15:29 | disposition home or self-care (01) | DRG 885 ==
LOC: 3BNU → OBSVTOIN 16:45
PROVIDERS: ADMIT Internal Medicine; ATTEND Internal Medicine